=== PATIENT | male | born 1990 | race Caucasian/White ===

== ENCOUNTER 2021-05-03 16:51 | Emergency (ER) | payer MEDICAID ==
[~2021-05-03] VITALS: Ht 170.2 cm; Wt 72.6 kg
[2021-05-03 17:15] VITALS: BP 135/93
[2021-05-03] MEDS ORDERED: ATA25 PO (18:09)
[2021-05-03 18:53] VITALS: BP 135/93
== END 2021-05-03 18:23 | disposition home or self-care (01) ==
LOC: MED 16:51
DX: F41.9 Anxiety disorder, unspecified (principal); M79.601 Pain in right arm; F15.10 Other stimulant abuse, uncomplicated
CPT/HCPCS: 99283